=== PATIENT | male | born 1995 | race African-American/Black ===

== ENCOUNTER 2018-03-17 04:30 | Emergency (ER) | payer MEDICAID ==
[~2018-03-17] VITALS: Ht 185.4 cm; Wt 82.0 kg
[2018-03-17] MEDS ORDERED: IBUPROFEN 600MG TABLET PO STA (05:17)
[2018-03-17 10:15] VITALS: BP 119/64
== END 2018-03-17 10:46 | disposition home or self-care (01) ==
LOC: ER 04:30
DX: S82.55XA Nondisplaced fracture of medial malleolus of left tibia, initial encounter for closed fracture (principal); R07.81 Pleurodynia; M25.512 Pain in left shoulder; M79.632 Pain in left forearm; F17.200 Nicotine dependence, unspecified, uncomplicated; F15.10 Other stimulant abuse, uncomplicated; W10.8XXA Fall (on) (from) other stairs and steps, initial encounter; Y93.89 Activity, other specified; Y92.018 Other place in single-family (private) house as the place of occurrence of the external cause
CPT/HCPCS: 71101; 73030; 73090; 73610; 99284; Z7610

== ENCOUNTER 2020-05-27 14:22 | Emergency (ER) | payer MEDICAID ==
[~2020-05-27] VITALS: Ht 165.1 cm; Wt 75.0 kg
[2020-05-27 14:44] VITALS: BP 100/64
[2020-05-27 20:59] LABS: *AMPHETAMINES SCREEN URINE PRESUMTIVE POSITIVE (NEGATIVE); *BARBITURATES SCREEN URINE NEGATIVE (NEGATIVE); *BENZODIAZEPINES SCREEN URINE NEGATIVE (NEGATIVE); *COCAINE SCREEN URINE NEGATIVE (NEGATIVE); METHADONE URINE SCREEN NEGATIVE (NEGATIVE)
[2020-05-27 21:00] LABS: CANNABINOID URINE SCREEN PRESUMTIVE POSITIVE (NEGATIVE); OPIATES URINE SCREEN NEGATIVE (NEGATIVE); PHENCYCLIDINE URINE SCREEN NEGATIVE (NEGATIVE)
== END 2020-05-27 21:57 | disposition home or self-care (01) ==
LOC: ER 14:22
DX: F15.10 Other stimulant abuse, uncomplicated (principal); F16.10 Hallucinogen abuse, uncomplicated; F12.10 Cannabis abuse, uncomplicated; F91.8 Other conduct disorders
CPT/HCPCS: 80305; 99283

== ENCOUNTER 2022-05-16 10:38 | Emergency (ER) | payer MEDICAID ==
[~2022-05-16] VITALS: Ht 188 cm; Wt 91.0 kg
[2022-05-16 12:59] VITALS: BP 128/74
[2022-05-16] MEDS ORDERED: LIDOCAINE HCL/EPINEPHRINE 1%-EPI 1:100,000 20 ML VIAL INFIL ONE (13:00)
[2022-05-16] MEDS ORDERED: IBUPROFEN 600MG TABLET PO ONE (13:00)
[2022-05-16] MEDS ORDERED: LIDOCAINE HCL/PF 1% 10 MG/ML 5ML VIAL INFIL ONE (13:00)
[2022-05-16] MEDS ORDERED: LIDOCAINE HCL/EPINEPHRINE 1%-EPI 1:100,000 10 ML VIAL INFIL NR (13:16)
[2022-05-16] MEDS ORDERED: AMOX1TAB16 MT (13:44)
[2022-05-16] MEDS ORDERED: IBUP-2029 MT (13:44)
== END 2022-05-16 14:01 | disposition home or self-care (01) ==
LOC: ER 10:48
DX: L03.211 Cellulitis of face (principal)
CPT/HCPCS: 99283; J3490